=== PATIENT | male | born 1970 | race Caucasian/White ===

== ENCOUNTER 2017-09-11 10:52 | Day surgery (SDC) | payer OTHER ==
[~2017-09-11] VITALS: Ht 170.2 cm; Wt 101.6 kg
[2017-09-11] MEDS ORDERED: ATENOLOL (11:51)
[2017-09-11] MEDS ORDERED: FLOMAX (11:51)
[2017-09-11] MEDS ORDERED: VITAMIN D3 (11:51)
[2017-09-11] MEDS ORDERED: ELIQUIS (11:51)
[2017-09-11 11:52] VITALS: Ht 170.2 cm; Wt 101.6 kg
[2017-09-11 13:57] VITALS: BP 113/76; PULSE 68; RESP 16
--- NOTE | 2017-09-11 14:42 | OPPN ---
Date/Time of Note Date/Time of Note DATE: 09/11/17 TIME: 14:40 Proc Note GI Procedure Date 09/11/17 Indication: other (Dyspepsia) Pre-procedure Diagnosis Dyspepsia Post-procedure Diagnosis Impression: Moderate gastritis with erosions. Rule out H. pylori infection. Biopsies obtained Otherwise normal EGD. Plan: PPI therapy Review pathology . Procedure Performed: Endoscopy (Plus biopsies) Surgeon DORA MARQUES MD See signature line Database Manager none Anesthesia Type: MAC Anesthesiologist: LIZBET RAMÍREZ MD Tourniquet Time none EBL none Transfusion required none Biopsy 1: Gastric body and antrum Grafts/Implants none Tubes/Drains none Complication(s) none Disposition: home Procedure Description Preoperative Diagnosis: After informed consent, with the patient/relatives understanding the procedure, its indications, potential risks and complications, including but not limited to : allergic reaction, bleeding, perforation or infection, and after all pertinent questions were answered to the patients satisfaction, the patient/ relatives signed witnessed informed consent. Following this, premedication was administered slowly IV push under careful cardiovascular and respiratory monitoring with pulse oximetry, automatic blood pressure, and capacity planner. Once the sedative effect was achieved the patient was place in the left lateral decubitus, the panendoscope was introduced and advanced under visual control. Careful examination of the upper gastrointestinal tract, both on insertion as well as withdrawal of the instrument disclosing the following findings: ESOPHAGUS: the mucosa of the entire esophagus was carefully examined and showed the following findings: the mucosa appears within normal limits. There is no evidence of esophagitis, varices, neoplasm, or stricture. No Hiatal Hernia identified. STOMACH: Upon entrance to the stomach air was insufflated, the gastric johnson distended normally. The mucosa of the fundus, body and antrum of the stomach was carefully examined both head-on and on retroflexion, and showed the following findings: There is erythema and edema of the mucosa with superficial erosions in the antrum. Biopsies were obtained to rule out H. pylori infection. Otherwise the mucosa appears within normal limits with no abnormalities. There is no evidence of ulcers or neoplasm. PYLORUS: The pylorus was carefully examined and showed the following findings: the pylorus appears patent and within normal limits, with no evidence of gastric outlet obstruction. DUODENUM: The duodenal mucosa was carefully examined in the duodenal bulb as well as the second portion of the duodenum and showed the following findings: the mucosa appears unremarkable with no evidence of duodenitis, ulcer or neoplasm. Copies To: CC: DORA MARQUES MD, MORDO MD Sep 11, 2017 14:42
--- NOTE | 2017-09-11 14:44 | OPPN ---
Date/Time of Note Date/Time of Note DATE: 09/11/17 TIME: 14:42 Proc Note GI Procedure Date 09/11/17 Indication: other (Colorectal cancer screening) Pre-procedure Diagnosis Colorectal cancer screening Post-procedure Diagnosis Impression: Extremely poor preparation precludes examination Plan: Reschedule with 2 day prep and emphasis in compliance Procedure Performed: Colonoscopy Surgeon DORA MARQUES MD See signature line Zoogler none Anesthesia Type: MAC Anesthesiologist: LIZBET RAMÍREZ MD Tourniquet Time none EBL none Transfusion required none Biopsy 1: None Grafts/Implants none Tubes/Drains none Complication(s) none Disposition: home Procedure Description After informed consent, with the patient/relatives understanding the procedure, its indications and potential risks and complications, including but not limited to: Allergic reaction, bleeding, perforation, infection, and after all pertinent questions were answered to the patient's satisfaction, the patient/ relatives signed the witnessed informed consent. Following this, premedication was administered slowly IV push under careful cardiovascular and respiratory monitoring with pulse OXIMETRY, automatic blood pressure, and telecom specialist. Once the sedative effect was achieved, the patient was placed in the left lateral decubitus position, digital rectal examination was performed. The colonoscope was then introduced and advanced under visual control throughout all segments of the colon including: []the rectum, sigmoid, descending colon, splenic flexure, transverse colon, hepatic flexure, ascending colon and finally reaching the cecum which was clearly identified by transillumination, finger indentation and the ileocecal valve. Careful examination of the mucosa of the lower gastrointestinal tract both on insertion as well as withdrawal of the instrument disclosed the following findings: PREPARATION QUALITY: Extremely poor, inadequate exam RECTAL EXAM: The anorectal area was visualized examined and digital rectal examination performed with the following findings: No evidence of perirectal disease, no masses. COLONIC MUCOSA: The mucosa of all segments of the colon was carefully examined and showed the following findings: The preparation is extremely poor and precludes examination of the colonic mucosa. Extensive lavage was performed without significant improvement. As we reach the splenic flexure instrument was withdrawn and the procedure was terminated. Moderate-sized internal hemorrhoids are present. The instrument was then withdrawn, the patient tolerated the procedure well and was transferred out of the Endoscopy Suite awake and in good condition to continue recovery under observation. Copies To: CC: DORA MARQUES MD, MORDO MD Sep 11, 2017 14:44
== END 2017-09-11 15:32 | disposition home or self-care (01) ==
LOC: EDSEX 10:52 → GIL 10:52
PROVIDERS: ATTEND Internal Medicine Gastroenterology
DX: R19.4 Change in bowel habit (principal); K29.50 Unspecified chronic gastritis without bleeding; E78.5 Hyperlipidemia, unspecified; I10 Essential (primary) hypertension; E66.9 Obesity, unspecified; Z68.35 Body mass index [BMI] 35.0-35.9, adult
CPT/HCPCS: 43239; 45378; 88305; 88312; Z7610